=== PATIENT | female | born 1960 | race Caucasian/White ===

== ENCOUNTER 2019-02-07 09:09 | Emergency (ER) | payer BC, OTHER ==
[~2019-02-07] VITALS: Ht 165.1 cm; Wt 48.1 kg
[2019-02-07] MEDS ORDERED: KETOROLAC 30 MG/ML VIAL IVP STA (09:24)
--- NOTE | 2019-02-07 09:24 | ED Integumentary General ---
General Stated Complaint: SINUS INFECTION - FACE IS SWOLLEN ON LEFT SIDE Source: patient History of Present Illness Date Seen by Provider: Feb 07, 2019 Time Seen by Provider: 09:18 Initial Comments 58-year-old female presents with left-sided facial swelling. Reports that she awoke with significant swelling of the left side of her face. She has a sore in which she squeezed and had some blood and pus come out of it. She has no dental pain. She does report she was recently started on Levaquin for a sinus infection but this is different. She has no fever, chills, nausea, vomiting or other systemic complaints. She has some moderate pain with it. Allergies and Home Medications Allergies Coded Allergies: clindamycin (Verified Allergy, Unknown, 02/07/19) Uncoded Allergies: PENCILLIN (Allergy, Unknown, 02/07/19) Home Medications Sulfamethoxazole/Trimethoprim 1 Each Tablet, 1 EACH PO BID Prescribed by: LISA GALVAN on 02/07/19 1109 Patient Home Medication List Home Medication List Reviewed: Yes Review of Systems Review of Systems Constitutional: No chills, No dizziness, No fever EENTM: see HPI, other (no difficulty swallowing, breathing ); No throat pain, No throat swelling Respiratory: no symptoms reported; No cough Cardiovascular: no symptoms reported; No chest pain Gastrointestinal: no symptoms reported Genitourinary: no symptoms reported Skin: see HPI Past Czkhakc-Pvmand-Fbimbl Hx Past Med/Social Hx: Reviewed Nursing Past Med/Soc Hx Physical Exam Vital Signs Vital Signs - First Documented 02/07/19 09:15 Temp 98.6 Pulse 112 Resp 18 B/P (MAP) 158/115 (129) Pulse Ox 95 O2 Delivery Room Air Capillary Refill : General Appearance: WD/WN, no apparent distress HEENT: other (Moderate swelling with induration of her left cheek, and no palpable abscess. There is a small sore but no drainage.) Neck: non-tender Cardiovascular: normal peripheral pulses, regular rate, rhythm Respiratory: chest non-tender, lungs clear, normal breath sounds Gastrointestinal: non tender, soft Extremities: normal range of motion Skin: other (Moderate left-sided facial and cheek swelling) Progress/Results/Core Measures Results/Orders Lab Results Laboratory Tests Test 02/07/19 09:30 Range/Units White Blood Count 12.1 H 4.3-11.0 10^3/uL Red Blood Count 4.52 4.35-5.85 10^6/uL Hemoglobin 13.0 11.5-16.0 G/DL Hematocrit 40 35-52 % Mean Corpuscular Volume 88 80-99 FL Mean Corpuscular Hemoglobin 29 25-34 PG Mean Corpuscular Hemoglobin Concent 33 32-36 G/DL Red Cell Distribution Width 14.7 H 10.0-14.5 % Platelet Count 380 130-400 10^3/uL Mean Platelet Volume 8.8 7.4-10.4 FL Neutrophils (%) (Auto) 78 H 42-75 % Lymphocytes (%) (Auto) 13 12-44 % Monocytes (%) (Auto) 8 0-12 % Eosinophils (%) (Auto) 1 0-10 % Basophils (%) (Auto) 0 0-10 % Neutrophils # (Auto) 9.4 H 1.8-7.8 X 10^3 Lymphocytes # (Auto) 1.6 1.0-4.0 X 10^3 Monocytes # (Auto) 1.0 0.0-1.0 X 10^3 Eosinophils # (Auto) 0.1 0.0-0.3 10^3/uL Basophils # (Auto) 0.0 0.0-0.1 10^3/uL Sodium Level 139 135-145 MMOL/L Potassium Level 4.0 3.6-5.0 MMOL/L Chloride Level 98 98-107 MMOL/L Carbon Dioxide Level 16 L 21-32 MMOL/L Anion Gap 25 H 5-14 MMOL/L Blood Urea Nitrogen 12 7-18 MG/DL Creatinine 0.66 0.60-1.30 MG/DL Estimat Glomerular Filtration Rate > 60 BUN/Creatinine Ratio 18 Glucose Level 107 H 70-105 MG/DL Calcium Level 8.9 8.5-10.1 MG/DL My Orders Orders - LISA GALVAN DO Ct Maxillofacial W (02/07/19 09:18) Basic Metabolic Panel (02/07/19 09:18) Cbc With Automated Diff (02/07/19 09:18) Iohexol Injection (Omnipaque 350 Mg/Ml 1 (02/07/19 09:30) Received Contrast (Hold Metformin- Contr (02/07/19 09:30) Sodium Chloride Flush (Catheter Flush Sy (02/07/19 09:30) Ns (Ivpb) (Sodium Chloride 0.9% Ivpb Bag (02/07/19 09:30) Ceftriaxone For Iv Use (Rocephin For I (02/07/19 09:30) Ketorolac Injection (Toradol Injection) (02/07/19 09:24) Medications Given in ED Current Medications Medications Dose Ordered Sig/Radha Route Start Time Stop Time Status Last Admin Dose Admin Ceftriaxone Sodium 1000 mg/ Sterile Water 10 ml @ 200 mls/hr ONCE ONCE IV 02/07/19 09:30 02/07/19 09:34 DC 02/07/19 09:42 200 MLS/HR Iohexol 75 ml ONCE ONCE IV 02/07/19 09:30 02/07/19 09:31 DC 02/07/19 10:19 75 ML Sodium Chloride 10 ml NEEDED PRN IV 02/07/19 09:30 02/07/19 10:19 10 ML Sodium Chloride 100 ml ONCE ONCE IV 02/07/19 09:30 02/07/19 09:31 DC 02/07/19 10:20 100 ML Vital Signs/I&O 02/07/19 02/07/19 09:15 10:05 Temp 98.6 Pulse 112 Resp 18 11 B/P (MAP) 158/115 (129) 149/88 (108) Pulse Ox 95 95 O2 Delivery Room Air Room Air Progress Progress Note : Time: 11:05 Progress Note I reviewed CT results and labs with patient. 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 I will add Bactrim to her antibiotics since she is currently on Levaquin and is allergic to amoxicillin and clindamycin for further cellulitis coverage. Patient will be discharged home in stable condition. She should return to the ER if symptoms worsen. If she has any difficulty swallowing, increased swelling. Diagnostic Imaging Diagonstic Imaging: CT Plain Films/CT/US/NM/MRI: facial bones, other Reviewed: Reviewed by Me, Discussed w/Radiologist Departure Impression Primary Impression: Other periodontal diseases Additional Impression: Cellulitis of face Disposition: HOME, SELF-CARE Condition: Stable Departure-Patient Inst. Referrals: NATALIE MASON MD (PCP/Family) Primary Care Physician Follow-up Saturday or Saturday next week for further evaluation and continuation of care Patient Instructions: Periodontal Disease, Cellulitis (Skin Infection), Adult ( [place]) Scripts Sulfamethoxazole/Trimethoprim (Sulfamethoxazole-Tmp Ds Tablet) 1 Each Tablet 1 EACH PO BID for 10 Days, #20 TAB Prov: LISA GALVAN DO 02/07/19 LISA GALVAN DO Feb 07, 2019 09:24
[2019-02-07] MEDS ORDERED: HOLD METFORMIN - RECEIVED CONTRAST 20 ML VIAL IV SCH (09:30)
[2019-02-07] MEDS ORDERED: cefTRIAXone FOR IV USE 1,000 MG in WATER (STERILE) FOR INJECTION 10 ML IV ONE (09:30)
[2019-02-07] MEDS ORDERED: CATHETER FLUSH 10 ML SYR IV PRN (09:30)
[2019-02-07] MEDS ORDERED: NS 100 ML (IVPB) BAG IV ONE (09:30)
[2019-02-07] MEDS ORDERED: IOHEXOL 350 MG/ML 100 ML (OMNIPAQUE 350) VIAL IV ONE (09:30)
[2019-02-07 09:43] LABS: BASOPHILS % (AUTO) 0 % (0-10); EOSINOPHILS % (AUTO) 1 % (0-10); HEMATOCRIT 40 % (35-52); LYMPHOCYTES # (AUTO) 1.6 X 10^3 (1.0-4.0); LYMPHOCYTES % (AUTO) 13 % (12-44); MEAN CORPUSCULAR HEMOGLOBIN 29 PG (25-34); MEAN CORPUSCULAR HGB CONC 33 G/DL (32-36); MEAN CORPUSCULAR VOLUME 88 FL (80-99); MEAN PLATELET VOLUME 8.8 FL (7.4-10.4); MONOCYTES % (AUTO) 8 % (0-12); NEUTROPHILS # (AUTO) 9.4 X 10^3 (1.8-7.8); NEUTROPHILS % (AUTO) 78 % (42-75); PLATELET COUNT 380 10^3/uL (130-400); RED CELL DISTRIBUTION WIDTH 14.7 % (10.0-14.5); WHITE BLOOD COUNT 12.1 10^3/uL (4.3-11.0)
[2019-02-07 09:44] LABS: EOSINOPHILS # (AUTO) 0.1 10^3/uL (0.0-0.3)
[2019-02-07] MEDS ORDERED: FLUT16SP22 (10:01)
[2019-02-07] MEDS ORDERED: ALBU18HF2 (10:01)
[2019-02-07] MEDS ORDERED: OXYC-529 (10:01)
[2019-02-07] MEDS ORDERED: IPRA3AMP31 (10:01)
[2019-02-07] MEDS ORDERED: LEVO500T80 (10:01)
[2019-02-07] MEDS ORDERED: OXYC30TA77 (10:01)
[2019-02-07 10:03] LABS: BUN/CREATININE RATIO 18; CALCIUM 8.9 MG/DL (8.5-10.1); CARBON DIOXIDE 16 MMOL/L (21-32); CHLORIDE 98 MMOL/L (98-107); CREATININE SERUM 0.66 MG/DL (0.60-1.30); GFR ESTIMATED > 60; GLUCOSE 107 MG/DL (70-105); SODIUM 139 MMOL/L (135-145)
[2019-02-07 10:05] VITALS: BP 149/88
--- NOTE | 2019-02-07 11:06 | Diagnostic Imaging Report ---
PROCEDURE: CT maxillofacial with contrast. TECHNIQUE: After intravenous administration of contrast, axial images were obtained through the face and reformatted into coronal and sagittal planes. Auto Exposure Controls were utilized during the CT exam to meet ALARA standards for radiation dose reduction. INDICATION: Facial swelling. FINDINGS: The visualized intracranial structures are unremarkable. The frontal, ethmoid, sphenoid and right maxillary sinuses are clear. Mastoid air cells are clear. The nasopharyngeal, oropharyngeal and hypopharyngeal tissues are symmetrical without mass effect. The prevertebral soft tissues are within normal limits. The epiglottis is unremarkable. There does however appear to be marked edema of the tongue. 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 There is cortical disruption along the anterolateral aspect of the maxilla with extension to the soft tissues where there is overlying soft tissue swelling and edema. No discrete abscess however is appreciated. Additionally there is disruption of the cortex involving the floor of the left maxillary sinus where is some mucosal thickening. The mucosal thickening in the left maxillary sinus is likely related to the odontogenic disease. There are degenerative changes in the cervical spine. 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 The left parotid gland is unremarkable. Left mandibular gland appears unremarkable. 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 While there is some overlying edema and swelling compatible with cellulitis no discrete abscess is appreciated. Markedly edematous appearing tongue. Possibility of angio edema cannot be excluded. Recommend clinical correlation. These findings were conveyed direct with Dr. Garcia in the ER. Dictated by: Dictated on workstation # [id number]
[2019-02-07] MEDS ORDERED: SULF-222 PO (11:09)
[2019-02-07 11:21] VITALS: BP 154/97
== END 2019-02-07 11:21 | disposition home or self-care (01) ==
LOC: EDUNIT# 09:09 → ER FS 09:12
DX: K05.6 Periodontal disease, unspecified (principal); L03.211 Cellulitis of face; Z88.1 Allergy status to other antibiotic agents; Z88.0 Allergy status to penicillin
CPT/HCPCS: 36415; 70487; 80048; 85025

== ENCOUNTER → 2020-03-30 | Outpatient (CLI) | payer BC ==
[~2020-03-30] MED LIST: ALBU18HF2; FLUT16SP22; IPRA3AMP31; LEVO500T80; OXYC30TA77; OXYC5TAB96; SULF-222 PO
--- NOTE | 2020-03-30 10:06 | Diagnostic Imaging Report ---
CLINICAL INDICATION: Patient short of breath. Patient had fluid drained in January and having permanent drain pain. EXAM: Chest x-ray, PA and lateral views. COMPARISON: None. FINDINGS: Moderate sized bilateral pleural effusions are seen, left side more than the right. There is associated consolidation in both lung base regions, left midlung field region, and patchy airspace opacities in the right midlung field region. There is no pneumothorax. The cardiac silhouette is obscured. The pulmonary vasculature does not appear significantly congested. Posterior spinal fusion hardware involving the upper and mid thoracic spine is noted. IMPRESSION: 1. There are bilateral pleural effusions, left side more than the right. 2. There is bilateral midlung field and bibasilar consolidation with patchy airspace opacities which may be related to atelectasis but superimposed infiltrate cannot be completely excluded. Given the consolidation in the lung bases, other underlying lung pathology such as possible mass cannot be completely excluded. Dictated by: Dictated on workstation # [id number]
== END ==
LOC: RAD FS 09:16
PROVIDERS: ATTEND Internal Medicine Hematology & Oncology
DX: J90 Pleural effusion, not elsewhere classified (principal); J98.4 Other disorders of lung; C07 Malignant neoplasm of parotid gland
CPT/HCPCS: 71046

== ENCOUNTER 2020-04-11 10:30 | Emergency (ER) | payer BC ==
[~2020-04-11] VITALS: Ht 152.4 cm; Wt 42.2 kg
[2020-04-11] MEDS ORDERED: methylPREDNISolone 125 MG (Solu-MEDROL) VIAL IV STA (10:36)
[2020-04-11] MEDS ORDERED: NS IV 1000 ML 1,000 ML IV SCH (10:36)
[2020-04-11] MEDS ORDERED: RT-ALBUTEROL/IPRATROPIUM 3 ML (DUONEB) VIAL INH ONE (10:45)
[2020-04-11] MEDS ORDERED: CEFEPIME INJECTION 1,000 MG in WATER (STERILE) FOR INJECTION 10 ML IV ONE (10:45)
[2020-04-11] MEDS ORDERED: VANCOMYCIN INJECTION 1,000 MG in NS (IVPB) 250 ML IV ONE (10:45)
--- NOTE | 2020-04-11 11:01 | ED Respiratory ---
General Chief Complaint: Respiratory Problems Stated Complaint: SOB Source: patient, caregiver (home health nurse) Exam Limitations: no limitations History of Present Illness Date Seen by Provider: Apr 11, 2020 Time Seen by Provider: 10:33 Initial Comments Patient presents ER by private conveyance from home with her home health care ashley winters and chief complaint of shortness of breath. She says this started about when she had a Pleurx drain placed. She has a nonproductive cough. She did start Mucinex. She's not on antibiotics or steroids. She has a history of metastatic lung cancer under treatment by oncology in . She is not on chemotherapy nor she had radiation therapy. Her primary care doctor is Dr. Bong zhu. She wishes to be a full code and she is okay with intubation if necessary. An ambulance was called and examined her but she refused transportation. Patient was found to have oxygen sats in the 60% range on 2 L by nasal cannula so she was turned up to 4 L which only brought her in the 70s per home health nurse. She uses 2 L of nasal cannula oxygen at baseline. She has a history of COPD on Advair and breathing treatments. She says she quit smoking 2 days ago and before that she was about a half pack a day smoker. She denies any fevers or chills. She denies any travel or exposure to anyone with respiratory symptoms that she is aware of. She denies chest pain nausea vomiting diarrhea constipation. Allergies and Home Medications Allergies Coded Allergies: clindamycin (Verified Allergy, Unknown, 02/07/19) Uncoded Allergies: PENCILLIN (Allergy, Unknown, 02/07/19) Home Medications Sulfamethoxazole/Trimethoprim 1 Each Tablet, 1 EACH PO BID Prescribed by: LISA GALVAN on 02/07/19 7151 Patient Home Medication List Home Medication List Reviewed: Yes Review of Systems Review of Systems Constitutional: No chills, No fever; malaise, weakness EENTM: No ear discharge, No hearing loss, No ear pain Respiratory: cough; No phlegm; short of breath, wheezing Cardiovascular: No chest pain, No Hx of Intervention, No palpitations Gastrointestinal: No abdominal pain, No constipation, No nausea, No vomiting Genitourinary: No discharge, No dysuria Musculoskeletal: No back pain, No joint pain All Other Systems Reviewed Negative Unless Noted: Yes Past Laxetnh-Duivvr-Fhfocd Hx Patient Social History Alcohol Use: Denies Use Alcohol Beverage of Choice: Cheap Liquor Recreational Drug Use: Yes Drug of Choice: marijuana Smoking Status: Former Smoker Type Used: Cigarettes Former Smoker, Quit: Apr 09, 2020 2nd Hand Smoke Exposure: No Recent Hopitalizations: No Seasonal Allergies Seasonal Allergies: Yes Past Medical History Ear Surgery, Orthopedic Respiratory: Yes Asthma Cardiac: No Neurological: No Genitourinary: No Gastrointestinal: No Musculoskeletal: Yes Chronic Back Pain Endocrine: No HEENT: No 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 oz. 48.029970ty; BMI Method:Stated General Appearance: moderate distress, cachetic Eyes: Bilateral Eye Normal Inspection, Bilateral Eye PERRL, Bilateral Eye EOMI HEENT: PERRL/EOMI, normal ENT inspection, pharynx normal Neck: non-tender, full range of motion, supple Respiratory: respiratory distress (prolonged with pursed lip breathing and accessory muscle use and oxygen sats in the 70% range.), decreased breath sounds, accessory muscle use, wheezing, expiration Cardiovascular: regular rate, rhythm, tachycardia, other (bilateral lower extremities with 1+ pitting edema) Gastrointestinal: non tender, soft Extremities: normal range of motion, non-tender, pedal edema (1+ bilateral lower extremities), slow capillary refill Neurologic/Psychiatric: no motor/sensory deficits, alert, normal mood/affect, oriented x 3 Skin: normal color, warm/dry Focused Exam Lactate Level 04/11/20 10:45: Lactic Acid Level 1.11 Lactic Acid Level Laboratory Tests Test 04/11/20 10:45 Lactic Acid Level 1.11 MMOL/L (0.50-2.00) Procedures/Interventions Chest Tube : Chest Tube Position: Left Chest Tube Location: Mid-Clavicular Chest Chest Tube Procedure: betadine prep (chlorhexidine), sterile drapes applied, sterile dressing applied Anesthesia: 1% Lidocaine Volume Anesthetic (ccs): 3 [place] of [place]: Yes Number of Attempts: 1 Time of Successful Intubation: 12:28 Tube Sutured to Skin: No (use the supplied adhesive dressing) Post Procedure CXR?: Yes Progress We explained the risks, benefits and alternatives to putting a sore event and versus chest tube. Patient consented to doing a floor event. Skin was thoroughly cleaned multiple times and chlorhexidine and then allowed to dry before draping on the usual sterile fashion. Using sterile technique we went between the second and third rib just over top of the third rib and applied 3 cc of lidocaine subdermally. When the patient had adequate anesthesia we used the supplied 11 blade scapula make a 3 mm incision just superior to the midclavicular line of the third rib on the left side. We then placed the trocar in the Thoravent and inserted this just into the chest wall. Using the trocar as a guide we easily threaded the catheter into the chest wall until it was flushed and the trocar was removed. Patient tolerated the procedure well. We evacuated 210 cc using supplied syringe. Patient had immediate improvement in her symptoms and her oxygen sats shot up from 93% to 100%. Her heart rate went down from 110-100. We dropped her FiO2 down to 40%. Site was locked and dressed in a sterile fashion. Progress/Results/Core Measures Suspected Sepsis SIRS Temperature: Pulse: Respiratory Rate: Laboratory Tests 04/11/20 10:45: White Blood Count 7.8 Blood Pressure / Mean: 04/11/20 10:45: Lactic Acid Level 1.11 Laboratory Tests 04/11/20 10:45: Creatinine 0.47L, INR Comment 1.0, Platelet Count 356, Total Bilirubin 0.2 Results/Orders Lab Results Laboratory Tests Test 04/11/20 10:40 04/11/20 10:45 04/11/20 13:07 Range/Units Blood Gas Puncture Site L RAD LT RAD Blood Gas Patient Temperature 97.5 36.2 Arterial Blood pH 7.26 *L 7.27 *L 7.37-7.43 Arterial Blood Partial Pressure CO2 72 *H 64 H 35-45 MMHG Arterial Blood Partial Pressure O2 53 L 77 L 79-93 MMHG Arterial Blood HCO3 32 H 29 H 23-27 MMOL/L Arterial Blood Total CO2 34.5 H 31.4 H 21.0-31.0 MMOL/L Arterial Blood Oxygen Saturation 81 L 93 L 94-100 % Arterial Blood Base Excess 3.3 H 1.1 -2.5-2.5 MMOL/L Nicanor Test UNK YES-POS Blood Gas Ventilator Setting NO NO Blood Gas Inspired Oxygen 6 L 15 L/MIN White Blood Count 7.8 4.3-11.0 10^3/uL Red Blood Count 5.08 4.35-5.85 10^6/uL Hemoglobin 14.8 11.5-16.0 G/DL Hematocrit 47 35-52 % Mean Corpuscular Volume 92 80-99 FL Mean Corpuscular Hemoglobin 29 25-34 PG Mean Corpuscular Hemoglobin Concent 32 32-36 G/DL Red Cell Distribution Width 14.5 10.0-14.5 % Platelet Count 356 130-400 10^3/uL Mean Platelet Volume 8.9 7.4-10.4 FL Neutrophils (%) (Auto) 88 H 42-75 % Lymphocytes (%) (Auto) 8 L 12-44 % Monocytes (%) (Auto) 4 0-12 % Eosinophils (%) (Auto) 0 0-10 % Basophils (%) (Auto) 0 0-10 % Neutrophils # (Auto) 6.9 1.8-7.8 X 10^3 Lymphocytes # (Auto) 0.6 L 1.0-4.0 X 10^3 Monocytes # (Auto) 0.3 0.0-1.0 X 10^3 Eosinophils # (Auto) 0.0 0.0-0.3 10^3/uL Basophils # (Auto) 0.0 0.0-0.1 10^3/uL Neutrophils % (Manual) 89 % Lymphocytes % (Manual) 5 % Monocytes % (Manual) 4 % Eosinophils % (Manual) 1 % Basophils % (Manual) 0 % Band Neutrophils 1 % Blood Morphology Comment Prothrombin Time 13.7 12.2-14.7 SEC INR Comment 1.0 0.8-1.4 Activated Partial Thromboplast Time 29 24-35 SEC Sodium Level 138 135-145 MMOL/L Potassium Level 4.9 3.6-5.0 MMOL/L Chloride Level 97 L 98-107 MMOL/L Carbon Dioxide Level 30 21-32 MMOL/L Anion Gap 11 5-14 MMOL/L Blood Urea Nitrogen 18 7-18 MG/DL Creatinine 0.47 L 0.60-1.30 MG/DL Estimat Glomerular Filtration Rate > 60 BUN/Creatinine Ratio 38 Glucose Level 131 H 70-105 MG/DL Lactic Acid Level 1.11 0.50-2.00 MMOL/L Calcium Level 9.5 8.5-10.1 MG/DL Corrected Calcium 9.6 8.5-10.1 MG/DL Magnesium Level 2.0 1.6-2.4 MG/DL Total Bilirubin 0.2 0.1-1.0 MG/DL Aspartate Amino Transf (AST/SGOT) 51 H 5-34 U/L Alanine Aminotransferase (ALT/SGPT) 44 0-55 U/L Alkaline Phosphatase 92 40-136 U/L Pro-B-Type Natriuretic Peptide 757.7 H <75.0 PG/ML Total Protein 7.6 6.4-8.2 GM/DL Albumin 3.9 3.2-4.5 GM/DL My Orders Orders - KELSI BAEZ Cbc With Automated Diff (04/11/20 10:36) Comprehensive Metabolic Panel (04/11/20 10:36) Blood Culture (04/11/20 10:36) Sputum Culture (04/11/20 10:36) Urinalysis (04/11/20 10:36) Urine Culture (04/11/20 10:36) Protime With Inr (04/11/20 10:36) Partial Thromboplastin Time (04/11/20 10:36) Chest 1 View Ap/Pa Only (04/11/20 10:36) Ed Iv/Invasive Line Start (04/11/20 10:36) Ed Iv/Invasive Line Start (04/11/20 10:36) Ekg Tracing (04/11/20 10:36) Vital Signs Adult Sepsis Patie Q15M (04/11/20 10:36) O2 (04/11/20 10:36) Remove Rings In Anticipation O (04/11/20 10:36) Lactic Acid Analyzer (04/11/20 10:36) Ns Iv 1000 Ml (Sodium Chloride 0.9%) (04/11/20 10:36) Cefepime Injection (Maxipime Injection) (04/11/20 10:45) Vancomycin Injection (Vancomycin Injecti (04/11/20 10:45) Albuterol/Ipra Inhalation Soln (Duoneb I (04/11/20 10:45) Methylprednisolone Sod Succ (Solu-Medrol (04/11/20 10:36) Svn Small Volume Nebulizer (04/11/20 10:36) Arterial Blood Gas (04/11/20 10:36) Catheter(Urinary) Insert & Ass 03,15 (04/11/20 11:02) Probnp Fs (04/11/20 11:02) Magnesium (04/11/20 11:02) Manual Differential (04/11/20 10:45) Lidocaine 1% Inj 20 Ml (Xylocaine 1% Inj (04/11/20 12:00) Lidocaine 1% Inj 20 Ml (Xylocaine 1% Inj (04/11/20 11:57) Fentanyl Injection (Sublimaze Injection (04/11/20 12:24) Fentanyl Injection (Sublimaze Injection (04/11/20 12:30) Chest 1 View Ap/Pa Only (04/11/20 12:36) Arterial Blood Gas (04/11/20 12:36) Fentanyl Injection (Sublimaze Injection (04/11/20 14:00) Medications Given in ED Current Medications Medications Dose Ordered Sig/Radha Route Start Time Stop Time Status Last Admin Dose Admin Albuterol/ Ipratropium 3 ml ONCE ONCE INH 04/11/20 10:45 04/11/20 10:46 DC 04/11/20 10:46 3 ML Cefepime HCl 1000 mg/Sterile Water 10 ml @ 200 mls/hr ONCE ONCE IV 04/11/20 10:45 04/11/20 10:47 DC 04/11/20 11:10 200 MLS/HR Fentanyl Citrate 25 mcg ONCE ONCE IVP 04/11/20 12:30 04/11/20 12:32 DC 04/11/20 12:33 25 MCG Lidocaine HCl 20 ml ONCE ONCE INJ 04/11/20 12:00 04/11/20 12:01 DC 04/11/20 12:35 20 ML Vancomycin HCl 1000 mg/Sodium Chloride 250 ml @ 250 mls/hr ONCE ONCE IV 04/11/20 10:45 04/11/20 11:44 DC 04/11/20 11:10 250 MLS/HR Vital Signs/I&O 04/11/20 04/11/20 10:45 10:50 Temp 36.3 Pulse 114 Resp 22 B/P (MAP) 175/94 (121) Pulse Ox 85 84 O2 Delivery Nasal Cannula Nasal Cannula O2 Flow Rate 5.00 5.00 Capillary Refill : Progress Note #1: Time: 11:07 Progress Note Suspect she may have pneumonia or other infection related to her recent Pleurx. Pneumothorax is also a possibility. Plan to cover her with broad-spectrum ant ibiotics do a septic workup give her a DuoNeb get an ABG. 1 L would be more than 20 mL/kg based on an estimated weight of 100 pounds. Cardiac index 0.8. On 6 L by nasal cannula patient's oxygen sats are around 89-90 which is acceptable and probably close to where she lives if she is oxygen dependent. Concern for CO2 retention. Her slow capillary refill and peripheral vasoconstriction may be artificially producing a low oxygen saturation. Progress Note #2: Time: 11:42 Progress Note Patient has a significant pneumothorax on the left side that does not attention pneumothorax. She has a pleurx catheter on the left side. We do not have any tubing to access it but home health nurse indicates that they do have some tu tamela at home and she will bring it to the ER. We have a thoravent and chest tube tray at the bedside. Patient is tolerating the Vapotherm so far. Using sterile technique we did take the dressing down cleaned with chlorhexidine and attempt to access the Pleurx catheter using a 20 cc syringe unsuccessfully. The patient is doing better on the Vapotherm at 20 L. She says she feels much better and her oxygen sat now reads 95% on 80% FiO2. ECG Initial ECG Impression Date: Apr 11, 2020 Initial ECG Impression Time: 10:54 Initial ECG Rate: 112 Initial ECG Rhythm: S.Tach Initial ECG Intervals: Normal Initial ECG Impression: Normal, Nonspecific Changes Initial ECG Comparisson: No Previous ECG Available Comment Sinus tachycardia without clinically relevant ST elevation or depression. Diagnostic Imaging Diagonstic Imaging: Xray Plain Films/CT/US/NM/MRI: chest (1v) Comments NAME: JAYCOB [facility] REC#: [id number] PT STATUS: REG ER : 1960 PHYSICIAN: KELSI BAEZ MD ADMIT DATE: 04/11/20/ER FS Draft Date of Exam:04/11/20 CHEST 1 VIEW AP/PA ONLY INDICATION: Shortness of breath. Time of exam 11:05 AM Correlation is made with prior chest from 03/30/2020. Patient has developed a large left-sided pneumothorax. This is likely a 40-50%. A moderate amount of consolidation around the left hilum and left base is noted. There is both an apical and basilar component to the pneumothorax. Tubing overlies the lower left hemithorax. Right lung is expanded. There is a moderate-sized right pleural effusion. Spinal instrumentation in the upper and mid thoracic spine is noted. IMPRESSION: 1. Moderate to large left sided pneumothorax, as described. 2. Moderate right-sided pleural effusion. Results were called to the emergency Department prior to this dictation. Dictated on workstation # [id number] Dict: 04/11/20 1117 Trans: 04/11/[address] [facility] [id number] Interpreted by: ERIC CALLEJAS MD Electronically signed by: Reviewed: Reviewed by Me Diagonstic Imaging: Xray Plain Films/CT/US/NM/MRI: chest (1v) Comments Marked improvement with reinflated parenchymal tissue seen over 90% of the left lung field. [facility]. [place], [place] NAME: JAYCOB PELLETIER MED REC#: [id number] PT STATUS: REG ER : 1960 PHYSICIAN: KELSI BAEZ MD ADMIT DATE: 04/11/20/ER FS Draft Date of Exam:04/11/20 CHEST 1 VIEW AP/PA ONLY INDICATION: Pneumothorax, status post thor a-vent placement. Correlation is made with chest radiograph earlier same morning. A left-sided thor a-vent has been placed. There has been moderate reexpansion of the left lung. No significant apical component pneumothorax is seen. There does appear to be a small basilar component pneumothorax with associated pleural effusion. Right-sided effusion is unchanged. There are bilateral perihilar and bibasilar infiltrates or atelectasis. IMPRESSION: Left Thora vent chest tube placement with significant decrease in size of left-sided pneumothorax when compared with earlier same day. Dictated on workstation # [id number] Dict: 04/11/20 1250 Trans: 04/11/[address] [facility] [id number] Interpreted by: ERIC CALLEJAS MD Electronically signed by: Reviewed: Reviewed by Me Departure Impression Primary Impression: Pneumothorax on left Disposition: 02 XFER SHT-TRM HOSP Condition: Stable Transfer Transfer Reason: Patient preference (her oncologist team is at [facility].) Time Spoke to Accepting Phy: 14:05 Transfer Progress Notes [facility]: 1245; report given to triage nurse. 1340: Nate and [facility] called back and we gave her the updated ABG and they're still working on finding a room for the patient. 1405: Dr. Cerrato accepting. Bed assignment pending. Transfer Facility: [facility] Method of Transfer: EMS Departure-Patient Inst. Referrals: NATALIE MASON MD (PCP/Family) Primary Care Physician KELSI BAEZ Apr 11, 2020 11:01
[2020-04-11 11:03] LABS: HEMATOCRIT 47 % (35-52); HEMOGLOBIN 14.8 G/DL (11.5-16.0); MEAN CORPUSCULAR HEMOGLOBIN 29 PG (25-34); WHITE BLOOD COUNT 7.8 10^3/uL (4.3-11.0)
[2020-04-11 11:04] LABS: BASOPHILS % (AUTO) 0 % (0-10); EOSINOPHILS % (AUTO) 0 % (0-10); LYMPHOCYTES # (AUTO) 0.6 X 10^3 (1.0-4.0); LYMPHOCYTES % (AUTO) 8 % (12-44); MEAN CORPUSCULAR HGB CONC 32 G/DL (32-36); MEAN CORPUSCULAR VOLUME 92 FL (80-99); MEAN PLATELET VOLUME 8.9 FL (7.4-10.4); MONOCYTES # (AUTO) 0.3 X 10^3 (0.0-1.0); MONOCYTES % (AUTO) 4 % (0-12); NEUTROPHILS # (AUTO) 6.9 X 10^3 (1.8-7.8); NEUTROPHILS % (AUTO) 88 % (42-75); PLATELET COUNT 356 10^3/uL (130-400); RED CELL DISTRIBUTION WIDTH 14.5 % (10.0-14.5)
[2020-04-11 11:09] LABS: ABG BASE EXCESS 3.3 MMOL/L (-2.5-2.5); ABG OXYGEN SATURATION 81 % (94-100); ABG PO2 53 MMHG (79-93); ABG TCO2 34.5 MMOL/L (21.0-31.0)
[2020-04-11 11:10] LABS: INSPIRED O2 6 L; PATIENT TEMP 97.5; VENTILATOR NO
[2020-04-11 11:11] LABS: ABG PH 7.26 (7.37-7.43)
[2020-04-11 11:12] LABS: ABG PCO2 72 MMHG (35-45)
[2020-04-11 11:15] LABS: PROTHROMBIN TIME PATIENT 13.7 SEC (12.2-14.7)
[2020-04-11 11:17] LABS: ALANINE AMINOTRANSFERASE 44 U/L (0-55); ALBUMIN 3.9 GM/DL (3.2-4.5); ALKALINE PHOSPHATASE 92 U/L (40-136); BILIRUBIN,TOTAL 0.2 MG/DL (0.1-1.0); BUN/CREATININE RATIO 38; CALCIUM 9.5 MG/DL (8.5-10.1); CARBON DIOXIDE 30 MMOL/L (21-32); CHLORIDE 97 MMOL/L (98-107); CREATININE SERUM 0.47 MG/DL (0.60-1.30); GFR ESTIMATED > 60; GLUCOSE 131 MG/DL (70-105); POTASSIUM 4.9 MMOL/L (3.6-5.0); SODIUM 138 MMOL/L (135-145); TOTAL PROTEIN 7.6 GM/DL (6.4-8.2)
--- NOTE | 2020-04-11 11:24 | Diagnostic Imaging Report ---
INDICATION: Shortness of breath. Time of exam 11:05 AM Correlation is made with prior chest from 03/30/2020. Patient has developed a large left-sided pneumothorax. This is likely a 40-50%. A moderate amount of consolidation around the left hilum and left base is noted. There is both an apical and basilar component to the pneumothorax. Tubing overlies the lower left hemithorax. Right lung is expanded. There is a moderate-sized right pleural effusion. Spinal instrumentation in the upper and mid thoracic spine is noted. IMPRESSION: 1. Moderate to large left sided pneumothorax, as described. 2. Moderate right-sided pleural effusion. Results were called to the emergency Department prior to this dictation. Dictated by: Dictated on workstation # [id number]
[2020-04-11 11:29] LABS: BAND NEUTROPHILS 1 %; BASOPHILS % (MANUAL) 0 %; EOSINOPHILS % (MANUAL) 1 %; LYMPHOCYTES % (MANUAL) 5 %; MONOCYTES % (MANUAL) 4 %; NEUTROPHILS % (MANUAL) 89 %
[2020-04-11] MEDS ORDERED: LIDOCAINE 1% INJ 20 ML 20 ML VIAL ONE (11:57)
[2020-04-11] MEDS ORDERED: LIDOCAINE 1% INJ 20 ML 20 ML VIAL INJ ONE (12:00)
--- OUTSIDE RECORDS SUMMARY | 2020-04-11 12:14 | XMS REPORT | Continuity of Care Document ---
Author Organization Unknown Address Unknown Phone Unavailable Allergies Active Description Code Type Severity Reaction Onset Reported/Identified Relationship to Patient Clinical Status Yes clindamycin [id number] Drug Aller gy Unknown N/A 02/07/2019 Yes PENCILLIN PENCILLIN Unknown N/A 02/07/2019 Medications There is no data. Problems Date Dx Coded Attending Type Code Diagnosis Diagnosed By 02/07/2019 Ot K05.6 ANDREA ODONTAL DISEASE, UNSPECIFIED 02/07/2019 Ot L03.211 CE LLULITIS OF FACE 02/07/2019 Ot R22.0 LOCA LIZED SWELLING, MASS AND LUMP, HEAD 02/07/2019 Ot Z88.0 SHAYY RGY STATUS TO PENICILLIN 02/07/2019 Ot Z88.1 SHAYY RGY STATUS TO OTHER ANTIBIOTIC AGENT 02/09/2019 Ot K05.6 ANDREA ODONTAL DISEASE, UNSPECIFIED 02/09/2019 Ot L03.211 CE LLULITIS OF FACE 02/09/2019 Ot R22.0 LOCA LIZED SWELLING, MASS AND LUMP, HEAD 02/09/2019 Ot Z88.0 SHAYY RGY STATUS TO PENICILLIN 02/09/2019 Ot Z88.1 SHAYY RGY STATUS TO OTHER ANTIBIOTIC AGENT Procedures There is no data. Results Test Result Range Complete blood count (CBC) with automate d white blood cell (WBC) differential - 02/07/19 09:30 Blood leukocytes automated count (number/volume) 12.1 10*3/uL 4.3-11.0 Blood erythrocytes automated count (number/volume) 4.52 10*6/uL 4.35-5.85 Venous blood hemoglobin measurement (mass/volume) 13.0 g/dL 11.5-16.0 Blood hematocrit (volume fraction) 40 % 35-52 Automated erythrocyte mean corpuscular volume 88 [ foz_us] 80-99 Automated erythrocyte mean corpuscular h emoglobin (mass per erythrocyte) 29 pg 25-34 Automated erythrocyte mean corpuscular h emoglobin concentration measurement (mass/volume) 33 g/dL 32-36 Automated erythrocyte distribution width ratio 14. 7 % 10.0- 14.5 Automated blood platelet count (count/volume) 380 10*3/uL 130-400 Automated blood platelet mean volume measurement 8.8 [foz_us] 7.4-10.4 Automated blood neutrophils/100 leukocytes 78 % 42-75 Automated blood lymphocytes/100 leukocytes 13 % 12-44 Blood monocytes/100 leukocytes 8 % 0-12 Automated blood eosinophils/100 leukocytes 1 % 0-10 Automated blood basophils/100 leukocytes 0 % 0-10 Blood neutrophils automated count (number/volume) 9.4 10*3 1.8-7.8 Blood lymphocytes automated count (number/volume) 1.6 10*3 1.0-4.0 Blood monocytes automated count (number/volume) 1. 0 10*3 0.0-1.0 Automated eosinophil count 0.1 10*3/uL 0 .0-0.3 Automated blood basophil count (count/volume) 0.0 10*3/uL 0.0-0.1 Whole blood basic metabolic panel - 01/13 05/01 09:30 Serum or plasma sodium measurement (moles/volume) 139 mmol/L 135-145 Serum or plasma potassium measurement (moles/volume) 4.0 mmol/L 3.6-5.0 Serum or plasma chloride measurement (moles/volume) 98 mmol/L 98-107 Carbon dioxide 16 mmol/L 21-32 Serum or plasma anion gap determination (moles/volume) 25 mmol/L 5-14 Serum or plasma urea nitrogen measurement (mass/volume ) 12 mg/dL 7-18 Serum or plasma creatinine measurement (mass/volume) 0.66 mg/dL 0.60-1.30 Serum or plasma urea nitrogen/creatinine mass ratio 18 NRG Serum or plasma creatinine measurement w ith calculation of estimated glomerular filtration rate > NRG Serum or plasma glucose measurement (mass/volume) 107 mg/dL 70-105 Serum or plasma calcium measurement (mass/volume) 8.9 mg/dL 8.5-10.1 CULTURE, ANAEROBIC AND AEROBIC - 9 15:29 CULTURE, ANAEROBIC BACTERIA W/GRAM STAIN SEE NOTE NRG CULTURE, AEROBIC BACTERIA SEE NOTE NR PDM - 09 PANEL (PROFILE 1) - 05/28/19 15 :06 Prescribed Drug 1 Oxycodone NRG Creatinine 102.1 mg/dL > or = 20.0 pH 6.57 4.5 - 9.0 Oxidant NEGATIVE mcg/mL <200 Amphetamines NEGATIVE ng/mL <500 medMATCH Amphetamines CONSISTENT NRG Benzodiazepines NEGATIVE ng/mL <100 medMATCH Benzodiazepines INCONSISTENT N RG Marijuana Metabolite POSITIVE ng/mL <20 Cocaine Metabolite NEGATIVE ng/mL <150 medMATCH Cocaine Metab CONSISTENT NRG Opiates NEGATIVE CONFIRMED ng/mL <100 Oxycodone POSITIVE ng/mL <100 COMMENT NRG Codeine NEGATIVE ng/mL <50 medMATCH Codeine CONSISTENT NRG Hydrocodone NEGATIVE ng/mL <50 medMATCH Hydrocodone CONSISTENT NRG Hydromorphone NEGATIVE ng/mL <50 medMATCH Hydromorphone CONSISTENT NRG Morphine NEGATIVE ng/mL <50 medMATCH Morphine CONSISTENT NRG Norhydrocodone NEGATIVE ng/mL <50 medMATCH Norhydrocodone CONSISTENT NRG Prescribed Drug 2 Alprazolam NRG Marijuana Metabolite 283 ng/mL <5 medMATCH Marijuana Metab INCONSISTENT N RG Noroxycodone 00200 ng/mL <50 medMATCH Noroxycodone CONSISTENT NRG Oxycodone 3896 ng/mL <50 medMATCH Oxycodone CONSISTENT NRG Oxymorphone 9789 ng/mL <50 medMATCH Oxymorphone CONSISTENT NRG Barbiturates NEGATIVE ng/mL <300 medMATCH Barbiturates CONSISTENT NRG Methadone Metabolite NEGATIVE ng/mL <100 medMATCH Methadone Metab CONSISTENT NRG Phencyclidine NEGATIVE ng/mL <25 medMATCH Phencyclidine CONSISTENT NRG CBC - 09/03/19 12:34 WHITE BLOOD CELL COUNT 6.4 Thousand/uL 3 .8-10.8 RED BLOOD CELL COUNT 4.84 Million/uL 3.8 0-5.10 HEMOGLOBIN 14.5 g/dL 11.7-15.5 HEMATOCRIT 43.7 % 35.0-45.0 MCV 90.3 fL 80.0-100.0 MCH 30.0 pg 27.0-33.0 MCHC 33.2 g/dL 32.0-36.0 RDW 14.6 % 11.0-15.0 PLATELET COUNT 288 Thousand/uL 140-400 MPV 10.6 fL 7.5-12.5 ABSOLUTE NEUTROPHILS 4000 cells/uL 1500- 7800 ABSOLUTE LYMPHOCYTES 1658 cells/uL 850-3 900 ABSOLUTE MONOCYTES 608 cells/uL 200-950 ABSOLUTE EOSINOPHILS 102 cells/uL 15-500 ABSOLUTE BASOPHILS 32 cells/uL 0-200 NEUTROPHILS 62.5 % NRG LYMPHOCYTES 25.9 % NRG MONOCYTES 9.5 % NRG EOSINOPHILS 1.6 % NRG BASOPHILS 0.5 % NRG PDM - 09 PANEL (PROFILE 1) - 03/17/20 14 :04 Prescribed Drug 1 Alprazolam NRG Creatinine 110.9 mg/dL > or = 20.0 pH 6.4 4.5-9.0 Oxidant NEGATIVE mcg/mL <200 Amphetamines NEGATIVE ng/mL <500 medMATCH Amphetamines CONSISTENT NRG Benzodiazepines NEGATIVE ng/mL <100 medMATCH Benzodiazepines INCONSISTENT N RG Marijuana Metabolite NEGATIVE ng/mL <20 medMATCH Marijuana Metab CONSISTENT NRG Cocaine Metabolite NEGATIVE ng/mL <150 medMATCH Cocaine Metab CONSISTENT NRG Opiates NEGATIVE CONFIRMED ng/mL <100 Oxycodone POSITIVE ng/mL <100 COMMENT NRG Codeine NEGATIVE ng/mL <50 medMATCH Codeine CONSISTENT NRG Hydrocodone NEGATIVE ng/mL <50 medMATCH Hydrocodone CONSISTENT NRG Hydromorphone NEGATIVE ng/mL <50 medMATCH Hydromorphone CONSISTENT NRG Morphine NEGATIVE ng/mL <50 medMATCH Morphine CONSISTENT NRG Norhydrocodone NEGATIVE ng/mL <50 medMATCH Norhydrocodone CONSISTENT NRG Prescribed Drug 2 Oxycodone NRG Prescribed Drug 3 OxyContin(TM) NRG Noroxycodone >71630 ng/mL <50 medMATCH Noroxycodone CONSISTENT NRG Oxycodone 8218 ng/mL <50 medMATCH Oxycodone CONSISTENT NRG Oxymorphone >44373 ng/mL <50 medMATCH Oxymorphone CONSISTENT NRG Barbiturates NEGATIVE ng/mL <300 medMATCH Barbiturates CONSISTENT NRG Methadone Metabolite NEGATIVE ng/mL <100 medMATCH Methadone Metab CONSISTENT NRG Phencyclidine NEGATIVE ng/mL <25 medMATCH Phencyclidine CONSISTENT NRG Encounters ACCT No. Visit Date/Time Discharge Status Pt. Type Provider Facility Loc./Unit Complaint [id number] 03/17/2020 13:45:00 03/17/2020 23:59: 59 [facility] Outpatient NATALIE MASON [facility] [id number] 03/17/2020 13:45:00 Document Registration [id number] 09/03/2019 12:30:00 Document Registration [id number] 05/28/2019 14:30:00 Document Registration [id number] 02/09/2019 15:30:00 Document Registration [id number] 03/30/2020 09:16:00 020 23:59:59 CLS Outpatient KITTY BAUER MD [facility] RAD FS C07 [id number] 06/19/2019 09:25:00 019 23:59:59 CLS Preadmit MARLON SILVERMAN, NATALIE Medina [facility] RAD HX OF CANCER [id number] 04/11/2020 10:33:[address] Emergency NESTOR SILVERMAN, KELSI Cottrell [facility] ER FS SOB [id number] 02/07/2019 09:44:00 Document Registration
--- OUTSIDE RECORDS SUMMARY | 2020-04-11 12:14 | XMS REPORT ---
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, Active 504995947 Problem Acute bronchitis J20.9 20 Nov, 2011 Active 31056448 Problem COPD (chronic obstructive pulmonary disease) J4 4.9 18 Mar, 2017 Active 03549592 Problem GERD (gastroesophageal reflux disease) K21.9 Active 383367054 Problem Chronic maxillary sinusitis J32.0 Ac tive 02380495 Problem Glaucoma H40.9 Active 99883456 Problem History of cancer Z85.9 Active 26 6111800 Problem Thoracic spine tumor D49.2 15 Mar, 2017 Active Problem Tobacco use Z72.0 Dec, Active 79503 3000 Problem Essential hypertension, benign I10 18 Nov, 2 010 Active 4986700 Problem Moderate protein-calorie malnutrition E44.0 Active 941417216 Problem Marijuana dependence F12.20 Active 58664700 ALLERGIES No Information ENCOUNTERS Encounter Location Date Diagnosis [address] [id number] [address] 04 Mar, [address] [id number] [address] 12 Feb, 2020 Acute non-recurrent maxillar y sinusitis J01.[address] [id number] [address] 06 Feb, 2020 Candidiasis of mouth B37.[address] [id number] [address] Jan, Acute non-recurrent maxillar y sinusitis J01.[address] [id number] [place] [address] Dec, Acute non-recurrent maxillar y sinusitis J01.[address] [id number] [place] [address] Dec, Moderate protein-calorie mal nutrition E44.0 ; Marijuana dependence F12.20 ; COPD (chronic obstructive pulmonary disease) J44.9 and Pleural effusion, left J90 [address] [id number] [address] Nov, Acute non-recurrent maxillar y sinusitis J01.[address] [id number] [address] Oct, Acute non-recurrent maxillar y sinusitis J01.[address] [id number] [address] Sep, [facility] [address] [place] [address] Sep, 201 9 History of cancer Z85.9 ; Thoracic spine tumor D49.2 ; 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 and Acute non-recurrent maxillary sinusitis J01.[address] [id number] [address] Sep, Essential hypertension, yanira gn I10 ; Thoracic spine tumor D49.2 ; Moderate protein-calorie malnutrition E44.0 and 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 [address] [id number] [place] [address] Aug, [address] [id number] [address] Aug, Acute non-recurrent maxillar y sinusitis J01.[address] [id number] [address] Aug, Moderate protein-calorie mal nutrition E44.0 and History of cancer Z85.9 [facility] [address] [id number] [place] [address] Aug, Moderate protein-calorie mal nutrition E44.0 ; Tobacco use Z72.0 and History of cancer Z85.9 [facility] [address] [id number] [place] [address] Jul, Encounter for immunization Z 23 [facility] [address] [id number] [place] [address] Jul, Candidiasis of mouth B37.0 a nd Acute non-recurrent maxillary sinusitis J01.00 [facility] [address] [id number] [place] [address] Jul, Acute non-recurrent maxillar y sinusitis J01.00 [facility] [place] [address] [id number] [place] [address] Jul, [facility] [address] [id number] [place] [address] Jul, Acute non-recurrent maxillar y sinusitis J01.00 [facility] [address] [id number] [place] [address] Jun, Acute non-recurrent maxillar y sinusitis J01.00 [facility] [place] [address] [id number] [place] [address] Jun, [facility] [address] [id number] [place] [address] Jun, Chronic maxillary sinusitis J32.0 and History of cancer Z85.9 [facility] [address] [id number] [place] [address] Jun, [facility] [address] [id number] [place] [address] Jun, [facility] [place] [address] [id number] [place] [address] May, [facility] [address] [id number] [place] [address] May, Marijuana dependence F12.20 ; Essential hypertension, benign I10 ; Moderate protein-calorie malnutrition E44.0 and Chronic maxillary sinusitis J32.0 [facility] [address] [id number] [place] [address] May, Acute non-recurrent maxillar y sinusitis J01.00 [facility] [place] [address] [id number] [place] [address] May, Acute non-recurrent maxillar y sinusitis J01.00 ; High risk medications (not anticoagulants) long-term use Z79.899 ; 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 ; Moderate protein-calorie malnutrition E44.0 and Thoracic spine tumor D49.2 [facility] [address] [id number] [address] May, [facility] [place] [address] [id number] [place] [address] Apr, [facility] [address] [id number] [address] Mar, [facility] [address] [id number] [place] [address] February, [facility] [address] [id number] [place] [address] February, Cutaneous abscess of face L0 2.01 ; Cellulitis of face L03.211 ; Underweight R63.6 ; Thoracic spine tumor D49.2 ; 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 ; Tobacco use Z72.0 and Moderate protein-calorie malnutrition E44.0 [facility] [address] [id number] [place] [address] February, [facility] [address] [id number] [place] [address] Jan, Facial abscess L02.01 [facility] [address] [id number] [place] [address] Jan, Facial swelling R22.0 [facility] [place] [address] [id number] [place] [address] Jan, [facility] [place] [address] [id number] [place] [address] Jan, Candidiasis of mouth B37.0 ; Acute non-recurrent maxillary sinusitis J01.00 and Moderate protein-calorie malnutrition E44.0 [facility] [place] [address] [id number] [place] [address] Jan, [address] [id number] [place] [address] Dec, [facility] [address] [facility] [id number] [address] [place] [address] Sep, [facility] [address] [id number] [address] [place] [address] Sep, [facility] [address] [id number] [address] [place] [address] Jul, [facility] [address] [id number] [address] [place] [address] Jul, IMMUNIZATIONS No Known Immunizations SOCIAL HISTORY Never Assessed REASON FOR VISIT Controlled Med Refill 01/13 PLAN OF CARE VITAL SIGNS MEDICATIONS Medication Instructions Dosage Frequency Start Date End Date Duration S tatus Oxycodone HCl 5 MG Orally every 4-6 hours 1 tablet as needed Jan, 10 days Active OxyContin 30 MG Orally every 12 hrs 1 tablet 12h Jan, 28 days Active RESULTS No Results PROCEDURES No Known procedures INSTRUCTIONS MEDICATIONS ADMINISTERED No Known Medications MEDICAL (GENERAL) HISTORY Type Description Date Medical History Asthma Medical History GERD (gastroesophageal reflux disease) Medical History COPD (chronic obstructive pulmonary dise ase) Medical History Glaucoma Medical History Hypertension Medical History Thoracic spine tumor Medical History Adenoid cystic carcinoma of parotid glan d Surgical History Sinus Surgery Surgical History Parotidectomy Surgical History Back Surgery Surgical History Facial Reconstruction Hospitalization History Surgeries
[2020-04-11] MEDS ORDERED: fentaNYL INJECTION 100 MCG/2 ML AMP ONE (12:24)
[2020-04-11] MEDS ORDERED: fentaNYL INJECTION 100 MCG/2 ML AMP IVP ONE ×2 (12:30→14:00)
--- NOTE | 2020-04-11 12:43 | NUR ---
1228: Thoravent placed left chest by Dr. Win.
--- NOTE | 2020-04-11 12:56 | Diagnostic Imaging Report ---
INDICATION: Pneumothorax, status post thor a-vent placement. Correlation is made with chest radiograph earlier same morning. A left-sided thor a-vent has been placed. There has been moderate reexpansion of the left lung. No significant apical component pneumothorax is seen. There does appear to be a small basilar component pneumothorax with associated pleural effusion. Right-sided effusion is unchanged. There are bilateral perihilar and bibasilar infiltrates or atelectasis. IMPRESSION: Left Thora vent chest tube placement with significant decrease in size of left-sided pneumothorax when compared with earlier same day. Dictated by: Dictated on workstation # [id number]
[2020-04-11 13:19] LABS: ABG BASE EXCESS 1.1 MMOL/L (-2.5-2.5); ABG OXYGEN SATURATION 93 % (94-100); ABG PCO2 64 MMHG (35-45); ABG PO2 77 MMHG (79-93); ABG TCO2 31.4 MMOL/L (21.0-31.0); ALLENS TEST YES-POS; VENTILATOR NO
[2020-04-11 13:21] LABS: ABG PH 7.27 (7.37-7.43); PATIENT TEMP 36.2
[2020-04-11 13:23] LABS: INSPIRED O2 15 L/MIN
[2020-04-11 14:51] LABS: CLARITY,URINE CLEAR; COLOR,URINE DARK YELLOW; PH,URINE 5.5 (5-9)
[2020-04-11 14:52] LABS: AMORPHOUS SEDIMENT,UR FEW AMOR URATES /LPF; BACTERIA,URINE TRACE /HPF; BILIRUBIN,URINE NEGATIVE (NEGATIVE); GLUCOSE, URINE (UA) NEGATIVE (NEGATIVE); KETONES,URINE NEGATIVE (NEGATIVE); LEUKOCYTE ESTERASE ,URINE NEGATIVE (NEGATIVE); NITRITE,URINE NEGATIVE (NEGATIVE); PROTEIN,URINE 1+ (NEGATIVE); WBC,URINE 0-2 /HPF
[2020-04-11 15:00] VITALS: BP 128/88
== END 2020-04-11 15:00 | disposition short-term general hospital (02) ==
LOC: EDUNIT# 10:30 → ER FS 10:33
DX: J93.9 Pneumothorax, unspecified (principal); C07 Malignant neoplasm of parotid gland; J45.909 Unspecified asthma, uncomplicated; F41.9 Anxiety disorder, unspecified; F32.9 Major depressive disorder, single episode, unspecified; M54.9 Dorsalgia, unspecified; Z88.0 Allergy status to penicillin; Z87.891 Personal history of nicotine dependence
CPT/HCPCS: 36415; 51702; 71045; 80053; 81000; 82805; 83605; 83735; 83880; 85007; 85027; 85610; 85730; 87040; 87088; 93005; 96361; 96365; 96375; 96376; 99291